=== PATIENT | male | born 2000 | race Caucasian/White ===

== ENCOUNTER 2022-08-08 12:19 | Emergency (ER) | payer MEDICAID, SELFPAY ==
[2022-08-08 12:20] VITALS: BP 149/92; PULSE 79; RESP 16; TEMP 36.6; O2SAT 100; BMI 19.2
[2022-08-08 12:51] LABS: Absolute Lymphocyte Count 1.73 X10^3/uL (0.83-4.51); Absolute Neutrophil Count 16.4 X10^3/uL (2.0-7.7); Basophil# 0.09 X10^3/uL; Basophil% 0.4 % (0-1); Eosinophils% 0.5 % (0-5); Hematocrit 49.1 % (40-54); Lymphocyte # 1.73 X10^3/ul (0.83-4.51); Lymphocyte % 8.5 % (19-41); Mean Corp Hgb Conc 34.6 g/dL (32-36); Mean Corpuscular Hgb 31.5 pg (27.0-32.0); Mean Corpuscular Volume 91.1 fL (80-94); Mean Platelet Vol. 9.4 fl (6.2-12.0); Monocyte# 1.97 X10^3/uL; Monocyte% 9.7 % (0-10); NRBC Flagged by Analyzer 0 % (0-5); Neutrophil # 16.36 X10^3/uL (2.7-7.7); Neutrophil % 80.3 % (47-70); POSITIVE DIFFERENTIAL YES; Platelet Count 290 K/mm3 (150-450); RBC Distribution Width CV 11.9 % (11.6-14.6); RBC Distribution Width SD 39.2 fl (35.1-43.9); Red Blood Count 5.39 M/mm3 (4.6-6.2); White Blood Count 20.4 K/mm3 (4.4-11.0)
[2022-08-08 12:52] LABS: Differential Indicated SCAN CRITERIA MET
--- NOTE | 2022-08-08 13:12 | EDS_ITS ---
HPI History of Present Illness Chief Complaint: Sore Throat Detail of Chief Complaint: Throat pain Informant: patient Onset/Context/Timing Onset: Days (4 to 5 days ago) Context: Sudden Onset Timing: Continuous Quality: Pain Location: Throat Current Severity: Mild Maximum Severity: Severe Worsened by: The patient swallows liquids or solids Relieved by: Nothing Associated Symptoms Associated Symptoms: Slight change in voice, reported difficulty eating or drinking for the past Narrative Narrative: Patient is a 21-year-old who presents with throat pain that started over 4 days ago. There is been no documented fever. He denies rhinorrhea, congestion, postnasal drainage. He denies cough or shortness of breath. He denies history medic fever, heart murmur, SBE or being immune suppressed. He denies rash. He denies joint pain or swelling. He denies ill contacts. He states he was seen at an urgent care and had a negative strep test. Patient denies nausea, vomiting or diarrhea. Patient denies drooling. Prior similar symptoms: No Recent Illness/Hospitalization: No PFSH PFSH Medical History no medical history no medical history Home Medications doxycycline monohydrate 100 mg capsule 100 mg PO BID #14 CAPSULES 08/08/22 [Rx Last Taken Unknown] Allergy/AdvReac Type Severity Reaction Status Date / Time No Known Allergies Allergy Verified 08/08/22 12:22 Surgical History no surgical history no surgical history Social History (Updated 08/08/22 @ 13:[address] Francisco Javier Pretty MD) household members: none Smoking Status: Current every day smoker tobacco type: e-cigarettes substance use type: marijuana ROS ROS ED Constitutional Constitutional ED: Denies chills, fever(s), subjective, sweats or weight loss Eyes Eyes: Denies blurry vision, change in vision or diplopia ENT ENT ED: Reports sore throat; Denies ear pain or rhinorrhea Cardiovascular Cardiovascular: Denies chest pain, orthopnea, palpitations or paroxysmal nocturnal dyspnea Respiratory/Chest Respiratory/Chest: Denies cough, dyspnea, dyspnea on exertion, orthopnea or paroxysmal nocturnal dyspnea Gastrointestinal Gastrointestinal: Denies abdominal pain, nausea or vomiting Genitourinary Genitourinary ED: Denies dysuria, hematuria or urinary frequency Musculoskeletal Musculoskeletal: Denies arthralgias, myalgias or neck pain Integumentary Denies abscess Neurologic Neurologic: Denies headache(s), paresthesias or weakness Hematologic/Lymphatic Hematologic/Lymphatic: Reports systems reviewed and no addt'l complaints, except as documented Allergic/Immunologic Allergic/Immunologic ED: Denies mouth swelling or tongue swelling EXAM Physical Exam Const Vital Signs: 08/08/22 12:20 Temperature 97.8 F Temperature Source Temporal Pulse Rate 79 Respiratory Rate 16 Blood Pressure 149/92 H Blood Pressure Mean 111 Pulse Ox 100 Oxygen Delivery Method Room Air Positive well nourished and well developed Constitutional Narrative: After entering the room and asking patient questions he began to cry. Asked him why he was crying and he reports his throat hurts a lot. General Appearance ED: well developed and NAD; Negative for cyanotic, diaphoretic or pallor HEENT Reports moist mucous membranes HEENT Narrative: Head is atraumatic and normocephalic. Ears and TMs are normal. Nares patent with no discharge. Posterior pharynx reveals slight erythema there is exudate noted left tonsil. There is no displacement of the uvula. There is no swelling of the pretonsillar area. Patient is not drooling. Eyes PERRL and EOMs intact bilaterally General Eye ED: Negative for pale conjunctiva or scleral icterus Neck no lymphadenopathy, supple and no JVD Neck Narrative: Trachea is midline. There is no inspiratory or expiratory stridor noted. Resp normal respiratory effort and clear to auscultation bilaterally Cardio regular rate, regular rhythm, S1 normal heart sound, S2 normal heart sound and no murmurs GI normal to inspection, nondistended, normoactive bowel sounds, non-tender, non- distended and no masses; Negative for hepatosplenomegaly Extremity normal to inspection Neuro oriented x3, CN's II-XII intact bilaterally and no sensory deficits noted Sensorium / Orientation: alert Motor Exam: strength 5/5 throughout Psych Mood & Affect: depressed and tearful Skin no rashes or lesions noted, no wounds and skin turgor normal General Skin Exam: elasticity normal; Negative for jaundice or pallor MDM MDM MDM Narrative Medical decision making narrative: Rapid strep was repeated since he was not told yesterday that he had exudate on his tonsils. Also obtain a CBC looking for atypical lymphocytes since a Monospot would be most likely negative since he is only been ill for 4 days. Patient's white count is noted to be markedly elevated. This may represent tracheitis./Laryngitis he is reluctant to swallow a capsule. Because of his elevated white count and reported severe pain we will obtain soft tissue of the neck to assess for epiglottitis, prevertebral swelling to suggest retropharyngeal abscess Lab Data Attestation: I reviewed the patient's lab results. Lab results narrative: White count is elevated at 20.4 thousand with shift. There is no bandemia. Rapid strep was negative. Labs: Laboratory Results - last 24 hr 08/08/22 12:39 WBC 20.4 H RBC 5.39 Hgb 17.0 H Hct 49.1 MCV 91.1 MCH 31.5 MCHC 34.6 RDW Std Deviation 39.2 RDW Coeff of Vicente 11.9 Plt Count 290 MPV 9.4 Immature Gran % (Auto) 0.600 Neut % (Auto) 80.3 H Lymph % (Auto) 8.5 L Calvert % (Auto) 9.7 Eos % (Auto) 0.5 Baso % (Auto) 0.4 Absolute Neuts (auto) 16.4 H Absolute Lymphs (auto) 1.73 Nucleated RBC % 0 Diff Path Review May foll Radiography Chest X-Ray - ED: 2 View and Read by ED Physician (Independent reviewed interpreted by me at 1353. There is no soft tissue swelling. There is no evidence of retropharyngeal abscess or sublingual tonsillitis. There is no evidence of epiglottitis.) Discharge Plan Triage Chief Complaint: Sore Throat ED Provider: Francisco Javier Pretty Dx/Rx/DC Orders Clinical Impression: Exudative tonsillitis, Laryngitis Instructions: ED Tonsillitis Prescriptions: New doxycycline monohydrate 100 mg capsule 100 mg PO BID Qty: 14 0RF Primary Care Provider: Angely Brownlee NP Referrals: Angely Brownlee NP, PODIATRIC MEDICINE DOCTOR-[facility] [Primary Care Provider] - 3-5 Days if not improving Activity Restrictions/Additional Instructions: 1. Salt water gargles 6-8 times a day 2. Chloraseptic spray or Cepastat lozenges as instructed on the bottle or box. 3. Take antibiotics until gone Disposition Disposition: Home, Self Care
[2022-08-08] MEDS: BENZOCAINE/MENTHOL 1 LOZENGE MUCOUS MEM (13:13)
[2022-08-08] MEDS: Doxycycline 100 MG CAPSULE PO (13:24)
--- NOTE | 2022-08-08 13:42 | RAD_ITS ---
STUDY: X-RAY - SOFT TISSUE NECK REASON FOR EXAM: Male, 21 years old. Throat pain, difficulty swallowing TECHNIQUE: 2 view(s) of the neck were obtained. COMPARISON: None. FINDINGS: Normal visualized nasopharynx, oropharynx, hypopharynx. Normal epiglottis. Normal visualized subglottic tracheal air column. Normal prevertebral soft tissue structures. Normal visualized osseous structures. The soft tissue structures are unremarkable. RAD/Neck for Soft Tissue IMPRESSION: Normal x-ray soft tissue neck. Electronically Signed: Luis Mcadams MD at 13:54 EDT ,
[2022-08-10 10:00] LABS: Pathologist Review Reviewed
== END 2022-08-08 14:02 | disposition home or self-care (01) ==
PROVIDERS: Emergency Provider Emergency Medicine; PCP Nurse Practitioner Family; Visit Provider Emergency Medicine
DX: J03.90 Acute tonsillitis, unspecified (principal); J04.0 Acute laryngitis; F17.290 Nicotine dependence, other tobacco product, uncomplicated
CPT/HCPCS: 70360; 85025; 87880; 99283